=== PATIENT | female | born 1940 | race African-American/Black ===

== ENCOUNTER 2017-06-07 08:13 | Inpatient (IN) | payer OTHER ==
[~2017-06-07] VITALS: Ht 157.5 cm; Wt 71.8 kg
--- NOTE | ~2017-06-07 | IDS ---
Interim Discharge Summary [address] [place]. [address] NAME: MEGAN LORENZO : 44 STATUS : ADM IN PAT#: [id number] AGE: 77 ADM/REG DATE : 06/07/17 MR#: [id number] REPORT SERV DATE: 06/14/17 DICTATED BY: JOEY BOWER DATE: 06/13/17 REPORT STATUS : Draft TRANSCRIBED BY: MODL DATE: 06/13/17 ADMISSION DATE: 06/07/2017 DISCHARGE DATE: Interim summary covers the period of 06/07/2017 through 06/13/2017. CURRENT DIAGNOSES: 1. Acute encephalopathy, probably hypertensive, improved. 2. History of dementia with behavior disorder requiring Seroquel. 3. Previous stroke. 4. Late effects of stroke. 5. Hypertension, uncontrolled on admission, improved control. 6. Acute kidney injury, present on admission, resolved. 7. Diabetes. 8. Coronary disease per cardiac catheterization without history of stenting. 9. Fall. 10.Hyperchloremic metabolic acidosis, resolved. 11.Elevated globulins with serum protein electrophoresis and immunofixation pending. OPERATIONS AND PROCEDURES: None. PRESENT ILLNESS: This is a 77-year-old female who was triaged in the emergency room on 06/07/2017 at 0817 hours with a stated complaint of low fall and low blood glucose. Admission vital signs, blood pressure 235/104, temperature 97.9, pulse 89, and respirations 20. After evaluation and treatment in the emergency room, she was referred to the Hospitalist Service for admission. She was seen by Dr. Priscilla Anna and admitted as described on admission history and physical examination. Additional history was that she had been found on the floor of her home. She was confused. Additional history included a left brain stroke in 03/2017 at [place] with right leg weakness and a speech deficit. She was sent to [facility] for rehab. She was admitted here in 04/2017 with uncontrolled hypertension. ADDITIONAL HISTORY: Per Dr. Anna. PHYSICAL EXAMINATION: Per Dr. Anna. ADMISSION LABORATORY: Per Dr. Anna. Interim Discharge Summary [address] [place]. [address] NAME: MEGAN LORENZO : 44 STATUS : ADM IN PAT#: [id number] AGE: 77 ADM/REG DATE : 06/07/17 MR#: [id number] REPORT SERV DATE: 06/14/17 DICTATED BY: JOEY BOWER DATE: 06/13/17 REPORT STATUS : Draft TRANSCRIBED BY: ALLI DATE: 06/13/17 HOSPITAL COURSE: She was admitted by Dr. Anna with: 1. Hypertensive urgency. 2. Acute kidney injury. 3. Status post fall. 4. Right knee pain. 5. Right middle finger fracture. 6. Diabetes. 7. Right cerebrovascular accident. 8. History of coronary disease. 9. Dementia, noting Namenda home medication. 10.Acute kidney injury. 11.Elevated magnesium level. 12.Constipation. 13.Hip pain. On admission, additional antihypertensive therapy was ordered. She was given IV fluids. Orthopedic consultation was obtained. Her hospitalist care was by Dr. Posey on 06/08/2017, 06/09/2017, and 06/10/2017. Her hospitalist care on 06/11/2017, 06/12/2017, and 06/13/2017 was by the undersigned. During the course of her hospitalization, her blood pressure had normalized on a regimen of carvedilol, isosorbide, nifedipine, and hydralazine. Her mental status has improved such that she knows she is at [facility] and is cooperative and able to transfer with contact guard assist from bed to chair. She was seen by Dr. Helder Pack regarding a possible finger fracture but none was evident. Additional imaging to evaluate for fractures included a right knee which showed degenerative changes but no acute fractures. AP pelvis and left hip showed no acute injury or severe degenerative arthropathy. A CT of brain did not demonstrate any new acute abnormality but did demonstrate old left parietal infarct with encephalomalacia as well as a minimal old left caudate lacunar infarct and chronic microvascular white matter ischemic changes. Her creatinine was 1.44 on admission and is 1.09 today. She has not had any blood sugar extreme since admission with blood sugar readings ranging from 96 to 243 on Levemir 15 units daily plus a correction scale. Prior to my seeing her, she was placed on some bedtime Seroquel. There have been no behavioral issues in the past 72 hours. She was seen by Physical and Occupational Therapy. [facility] facility was recommended. We are waiting on insurance approval. Hospitalist care to be assumed by [address] [place] [address] team on 06/14/2017. Interim Discharge Summary [address] [place]. [address] NAME: MEGAN LORENZO : 44 STATUS : ADM IN PAT#: [id number] AGE: 77 ADM/REG DATE : 06/07/17 MR#: [id number] REPORT SERV DATE: 06/14/17 DICTATED BY: JOEY BOWER DATE: 06/13/17 REPORT STATUS : Draft TRANSCRIBED BY: MODSkinny DATE: 06/13/17 DD/BRIENL Joey Bower M.D. / [id number] CC: Joey Bower M.D.
--- NOTE | ~2017-06-07 | DS ---
Discharge Summary [address] [place]. [address] NAME: MEGAN LORENZO : 44 STATUS : DIS IN PAT#: [id number] AGE: 77 ADM/REG DATE : 06/07/17 MR#: [id number] REPORT SERV DATE: 06/17/17 DICTATED BY: REGINALD PAREDES DATE: 06/17/17 REPORT STATUS : Draft TRANSCRIBED BY: MODL DATE: 06/17/17 ADMISSION DATE: 06/07/2017 DISCHARGE DATE: 06/17/2017 DISCHARGE DIAGNOSES: Include: 1. Acute encephalopathy, multifactorial, likely hypertensive. 2. Acute kidney injury, resolved. 3. Hypertension. 4. Multiple falls prior to admission. 5. History of dementia, cerebrovascular accident with late effects, particularly left- sided weakness and some expressive aphasia. 6. Diabetes type 2, most recent hemoglobin A1c 7.8. 7. History of coronary artery disease. 8. Constipation. 9. Hypokalemic metabolic acidosis that is resolved. 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 DISCHARGE MEDICATIONS: Are as follows, aspirin 81 mg daily, Coreg 25 mg twice a day, Pepcid 20 mg daily, ferrous sulfate 300 mg daily, level 2 sliding scale NovoLog insulin a.c. and h.s., Imdur ER 60 mg twice a day, Namenda 5 mg twice a day, Procardia 90 mg daily, Protonix 40 mg daily, Seroquel 25 mg at bedtime, Zoloft 100 mg daily, Zocor 40 mg at bedtime, hydralazine 100 mg twice a day, Levemir insulin 15 units subcutaneously daily, artificial tears p.r.n. ophthalmically, Voltaren gel applied four times a day p.r.n. for leg pain, hypoglycemia protocol, [place] 5/325 one tablet every four hours p.r.n. for pain, milk of magnesia p.r.n., MiraLAX one packet twice a day p.r.n., clonidine 0.2 mg every eight hours p.r.n. for hypertension, albuterol inhalers p.r.n. for shortness of breath, Aldactone 25 mg daily, and K-Dur 20 mEq daily. HISTORY OF PRESENT ILLNESS: A 77-year-old female who presented after being found on the floor at home. The patient was brought to the emergency room. Please see initial H and P of Dr. Priscilla Anna, as the patient is admitted to the Hospitalist Service for further evaluation and treatment. Also, see the interim discharge summary of Dr. Mejia Musa, as this discharge summary will cover the dates of 06/14/2017 to 06/17/2017. CONSULTANTS DURING THIS ADMISSION: Include Helder Pack, Orthopedic. CONTINUATION IN THE HOSPITAL COURSE: On 06/14/2017, the patient is resting in bed comfortably. No new complaints. She was sleeping well on her dose of Seroquel. Was beginning to eat better. Blood sugars were well controlled. [facility] was in the process of evaluating her for approval and placement. She continued to do well. We were simply awaiting on [facility] approval and bed availability. I did decrease her Seroquel to 25 mg nightly, and she was able to be transferred to [facility] on 06/17/2017 when bed became available. Most recent lab work indicated sodium 143, potassium 3.8, BUN 19, creatinine 0.82. White Discharge Summary [address] [place]. [address] NAME: MEGAN LORENZO : 44 STATUS : DIS IN [facility]#: [id number] AGE: 77 ADM/REG DATE : 06/07/17 MR#: [id number] REPORT SERV DATE: 06/17/17 DICTATED BY: REGINALD PAREDES DATE: 06/17/17 REPORT STATUS : Draft TRANSCRIBED BY: MODSkinny DATE: 06/17/17 blood cells 6.1, hemoglobin 10.3, hematocrit 31.8. I have updated the patient and the patient's sister. They are in agreement with this plan going forward. Please note greater than 30 minutes was spent on this discharge for medical review, medication teaching, followup planning, and further disposition. BECKY/ALLI Elijah June NP Reginald Paredes MD / [id number] CC: Reginald Paredes MD
--- NOTE | ~2017-06-07 | HP ---
History And Physical [id number] [facility] [place]. [address] NAME: MEGAN LORENZO : 44 STATUS : ADM Fabian PAT#: [id number] AGE: 77 ADM/REG DATE : 06/07/17 MR#: [id number] REPORT SERV DATE: 06/07/17 DICTATED BY: YUE ALVARENGA DATE: 06/07/17 REPORT STATUS : Draft TRANSCRIBED BY: MODSkinny DATE: 06/07/17 DATE OF ADMISSION: 06/07/2017 HISTORY OF PRESENT ILLNESS: This is a 77-year-old female who was found at home after she fell on the floor. According to the nurse practitioner in the ER, Simon Iyer, the patient brought by her sister because the patient lives by herself. Her sister takes care of her and she found her on the floor, and also patient was recently in rehabilitation and then she came home, and according to Simon Iyer, it looks like the patient was unable to take her medications. There was also confusion and she fell at home. She is complaining of right knee pain and she felt dizzy according to Simon Iyer. The patient also was disoriented, she did not know who is the president. On the presentation, her blood pressure was 235/104. After she given she was given labetalol two times in the emergency room, her blood pressure was re-checked and it was 206/91 one time and the other time it was re-checked, it was 236/98. When I saw the patient, her blood pressure was 200/90. She was placed on a Catapres patch as well as she was given labetalol IV in the emergency room and also 250 mL fluid bolus was given to the patient before I saw this patient. When I saw the patient, patient's sister was not at the bedside, she just left. The patient herself cannot provide any history, but she only say that she fell. She does not know where she is, but she is not complaining of any pain. No chest pain. No shortness of breath. She is only complaining of pain in her right knee and right middle finger, otherwise she looks comfortable. PAST MEDICAL HISTORY: Collected from records. The patient had hypertensive urgency during previous admission in 04/08/2017 when she was admitted by Dr. Billings and discharged on 04/[address] Hall with diagnosis of uncontrolled hypertension, history of old cerebrovascular accident before previous admission, and she had a right hemiparesis at that time with aphasia, history of diabetes, history of coronary artery disease. She is on Namenda, so it looks like she has also dementia. History of coronary artery disease with a history of stent placement by Dr. Perez. History of left parietal stroke in 03/2017 at [facility] with right leg weakness and speech deficit, hypertension, history of asthma. PAST SURGICAL HISTORY: Includes right toe incision and drainage. ALLERGIES: SHE IS ALLERGIC TO PENICILLIN. ALSO, SHE IS ALLERGIC TO LISINOPRIL AND KIAN INHIBITORS. FAMILY HISTORY: Significant for multiple family members with heart disease and stroke. SOCIAL HISTORY: She used to live with her sister. She does not have biological children. No tobacco abuse. No alcohol use. HOME MEDICATIONS: Include albuterol, Artificial Tears, aspirin 81 mg a day, Coreg 6.25 p.o. b.i.d., clonidine 0.2 mg p.o. every eight hours, diclofenac, ferrous sulfate 325 a day, hydralazine 50 p.o. q.8 hours, NovoLog sliding scale insulin, Levemir 18 units at bedtime, Namenda 5 mg twice a day, milk of magnesia one dose daily p.r.n., Procardia 90 mg a day, Protonix 40 mg p.o. b.i.d. She used to take potassium chloride, but now it is stopped. Ranitidine 150 p.o. b.i.d., Zoloft 100 mg daily, simvastatin 40 mg daily, spironolactone 20 History And Physical [address] [address] NAME: MEGAN LORENZO : 44 STATUS : ADM Fabian PAT#: [id number] AGE: 77 ADM/REG DATE : 06/07/17 MR#: [id number] REPORT SERV DATE: 06/07/17 DICTATED BY: YUE ALVARENGA DATE: 06/07/17 REPORT STATUS : Draft TRANSCRIBED BY: MODSkinny DATE: 06/07/17 p.o. q.8 hours p.r.n., and Restoril 15 mg at bedtime. REVIEW OF SYSTEMS: I am unable to do review of systems on this patient since she is not able to give correct answers, but as I dictated above. She did not complain of chest pain. No shortness of breath. She is not complaining of any headache as well. PHYSICAL EXAMINATION: GENERAL: A well-nourished, well-developed female, not in acute distress. Resting quietly. VITAL SIGNS: Blood pressure 200/95, temperature 97.9, heart rate 89, respiratory rate 20, oxygen saturation 96% on room air. HEENT: Head atraumatic, normocephalic. Conjunctivae clear. Pupils are equal and reactive to light and accommodation. Extraocular muscles are intact. NECK: Supple. Trachea is midline. No supraclavicular or cervical lymphadenopathy. LUNGS: Diminished breath sounds bilaterally. Decreased respiratory effort. CARDIOVASCULAR: Regular rate and rhythm. Point of maximal impulse not displaced. ABDOMEN: Soft. There is no significant tenderness on abdominal palpation. She just has diminished bowel sounds and it is unclear when she had a last bowel movement. Benign abdominal examination, no organomegaly. EXTREMITIES: No clubbing, cyanosis, or edema. MUSCULOSKELETAL: She has difficulty to bend her right knee, but the right knee does not look swollen and also the left knee looks okay and able to bend it. The right middle finger is deformed and she has mild pain when she tries to bend it. NEUROLOGICAL: Muscle strength is 5/5 bilaterally on upper extremities. She has difficulty to lift her right lower extremity because of the pain in the knee. Left lower extremity muscle strength 5/5. She has some dysarthria, which looks chronic according to Simon Iyer. SKIN: Normal color, slightly decreased turgor. LABORATORY RESULTS: Sodium 139, potassium 4.2, chloride 100, carbon dioxide 29, BUN 29, creatinine 1.44, blood sugar 125, magnesium 2.7. Troponin less than 0.02. CPK 86. Her creatinine during previous admission on 04/08 was 0.97. White count 10.2, hemoglobin 14, hematocrit 42, platelet count 294. PT 14.2, INR 1.1. UA did not show any evidence of urinary tract infection. CT of the head, no acute intracranial pathology, atrophy, old left parietal infarction with encephalomalacia, minimal old left caudate lacunar infarct, chronic microvascular white matter, ischemic changes, calcific atherosclerosis. Her EKG showed normal sinus rhythm with a rate of 70, prolonged QT interval. Also her magnesium level was 2.7. ASSESSMENT AND PLAN: This is a 77-year-old female with a past medical history of uncontrollable hypertension with multiple admissions for uncontrolled hypertension, history of a parietal stroke in March, history or dementia, presented with, 1. Hypertensive urgency. 2. Acute kidney injury likely secondary to acute dehydration. 3. Status post fall. 4. Right knee pain. 5. Right middle finger fracture. History And Physical [address] [address] NAME: MEGAN LORENZO : 44 STATUS : ADM Fabina PAT#: [id number] AGE: 77 ADM/REG DATE : 06/07/17 MR#: [id number] REPORT SERV DATE: 06/07/17 DICTATED BY: YEU ALVARENGA DATE: 06/07/17 REPORT STATUS : Draft TRANSCRIBED BY: ALLI DATE: 06/07/17 6. Diabetes mellitus. 7. Recent cerebrovascular accident. 8. History of coronary artery disease. 9. Dementia, since is on Namenda. We will admit the patient in observation status to intermediate care unit since her blood pressure was still elevated, and we will start the patient on a Cardene drip. At the same time, we will continue her antihypertensive medications. We will monitor her blood pressure. Will bring blood pressure slowly with initial goal systolic blood pressure 160, diastolic 85, and then it should be brought down to other goal. 10.Acute kidney injury. The patient will be started on IV fluids. I think it is related to dehydration. 11.Elevated magnesium level likely related to laxatives like magnesium citrate, which is on patient's records. We try to avoid it and give her MiraLAX as needed. 12.Question of constipation. We will do x-ray of KUB on this patient. 13.Right knee pain. I will order x-ray on the right knee. 14.Question of the hip pain. Simon Iyer, emergency room provider. He did an x-ray on hips and according to him, the x-ray of the hips look okay. We will wait for official report. It looks like she had a right knee x-ray also, but the official report is not read. An abdominal x-ray also looks like it is done. We will wait for the report on these x-rays. 15.We will try to avoid giving the patient magnesium citrate. 16.Regarding diabetes, we will put the patient on a NovoLog sliding scale and a low-dose Levemir. 17.Nurses to do dysphagia screen on this patient, and if it goes good, she can be started on a soft mechanical diet with aspiration precautions. My partner will see this patient while she will be in the IMCU. MG/MODL Yue Alvarenga M.D. / [id number] CC: Roro Posey M.D.
--- NOTE | ~2017-06-07 | CN ---
Consultation Report [facility] [address] [place]. [address] NAME: MEGAN LORENZO : 44 STATUS : ADM IN [facility]#: [id number] AGE: 77 ADM/REG DATE : 06/07/17 MR#: [id number] REPORT SERV DATE: 06/09/17 DICTATED BY: PATIENEC PACK DATE: 06/08/17 REPORT STATUS : Draft TRANSCRIBED BY: ALLI DATE: 06/08/17 ORTHOPEDIC CONSULTATION DATE OF CONSULTATION: 06/08/2017 REASON: Questionable right middle finger fracture. HISTORY OF PRESENT ILLNESS: Ms. Lorenzo is a 77-year-old female who is admitted to the hospitalist service. We are asked to see regarding right middle finger. She is status post fall, reports some pain in the middle finger prior to the fall but it was worse after reported some deformity that has been present for a while. Denies any numbness or tingling. She was placed in a splint in the ER and evaluated in the IMCU. PAST MEDICAL HISTORY: Significant for hypertension, metabolic encephalopathy, dementia, and history of recent CVA. SURGERIES: Please see the list. MEDICATIONS: Please see the list. ALLERGIES: KIAN INHIBITOR, LISINOPRIL, AND PENICILLIN. REVIEW OF SYSTEMS: Negative except as above. PHYSICAL EXAMINATION: GENERAL: The patient is resting comfortably in hospital bed, in no apparent distress. EXTREMITIES: Examination of the left upper extremity, no erythema, ecchymosis, swelling, or deformity. No external signs of trauma. No bony tenderness. Neurovascularly intact distally. Good range of motion. Examination of the right wrist was nontender. Good range of motion. No bony tenderness. No open wounds or abrasions. Examination of the right hand, splint was removed the middle finger that was flexed in angular deformity about the PIP joint. It is mildly tender. She had intact flexor and extensor function. There was limited extension. There was no tenderness about the middle, distal, or proximal phalanx. She was tender about the PIP joint. DIAGNOSTIC DATA: X-ray series of the right hand show destructive middle finger PIP osteoarthritis with eccentric wear and angular deformity. No acute fractures. ASSESSMENT AND PLAN: 77-year-old with right middle finger severe degenerative joint disease, osteoarthritis with exacerbation after a fall. Recommend symptomatic treatment, active range of motion, activity modification. Splint only as needed as I believe it will lead to further stiffness. She can see us as an outpatient in 7 to 10 days. May consider other modalities should the pain persist. We will be available as needed. Consultation Report [place] [id number] [place]. [address] NAME: MEGAN LORENZO : 44 STATUS : ADM IN PAT#: [id number] AGE: 77 ADM/REG DATE : 06/07/17 MR#: [id number] REPORT SERV DATE: 06/09/17 DICTATED BY: PATIENCE PACK DATE: 06/08/17 REPORT STATUS : Draft TRANSCRIBED BY: MODSkinny DATE: 06/08/17 LONG/ALLI Patience Pack M.D. / [id number] CC: Roro Posey M.D.
[~2017-06-07 08:13] MED LIST: ACCUNEB INH; AFEDITAB60 MG PO; ASAB PO; B12250T PO; BLINK EYE OP; BREO ELLIPTA INH; CALTRA600D PO; CAT1 PO; CAT2 PO; COZAAR100 MG PO; FERROUS SULF325 M1 PO; FLUOROMETHOLONE 0.1% OP; GLUCOPHAGE1000 MG PO; HUMULIN SC; ISORDTITRA PO; KLOR-CON M2020 MEQ PO; L40 PO; LEVEMIR SC; LYRICA75 PO; MIRALAX POWDER1 PKT PO; MONOKET20 PO; NAMENDA5 PO; NITROQUICK0.4 MG SL; NOVOLIN; NOVOLOG SC; PRILO PO; PROTONIX PO; PROVHFA INH; SINGULAIR1 PO; SPIRO25 PO; SYMBICORT 160/41 INH INH; TRIAMCINOLONE; TUMSROLL PO; V180SR PO; VALTURN1 PO; VENTOLIN HFA INH; VERELAN240 MG PO; VITAMIN D400 UNI1 PO; ZOCOR10 PO; ZOCOR40 PO; ZOL50 PO; [UNRECOGNIZED DRUG - OTHER] PO
[2017-06-07 10:38] LABS: ASCORBIC ACID (UR NOT ORDER) NEG (NEG); BILIRUBIN, URINE NEGATIVE (NEG); ER URINALYSIS TAT 0 Hrs 08 Mins; KETONE, URINE NEGATIVE (NEG); LEUKOCYTE ESTERASE(NOT OR NEG (NEG); NITRITE (URINE) NEG (NEG); WBC (NOT ORDERED) (RFLEX) < 1 (0-5)
[2017-06-07] MEDS ORDERED: NAMENDA5 PO (10:44)
[2017-06-07] MEDS ORDERED: LEVEMFLXPN SC (10:44)
[2017-06-07] MEDS ORDERED: NXL9 PO (10:45)
[2017-06-07] MEDS ORDERED: VENTOLIN HFA INH (10:45)
[2017-06-07] MEDS ORDERED: LASIX (10:46)
[2017-06-07] MEDS ORDERED: PROTONIX PO (10:46)
[2017-06-07] MEDS ORDERED: ZOCOR40 PO (10:47)
[2017-06-07] MEDS ORDERED: ZOL100 PO (10:47)
[2017-06-07] MEDS ORDERED: REFRESH OPH SO0.3 ML OPH (10:47)
[2017-06-07] MEDS ORDERED: SPIRO25 PO (10:48)
[2017-06-07] MEDS ORDERED: CAT2 PO (10:49)
[2017-06-07] MEDS ORDERED: HALF81 PO (10:49)
[2017-06-07] MEDS ORDERED: COREG6 PO (10:49)
[2017-06-07] MEDS ORDERED: NOVOLOG SC (10:49)
[2017-06-07] MEDS ORDERED: FERROUS SULF325 M1 PO (10:50)
[2017-06-07] MEDS ORDERED: VOLTAREN1 % TOP (10:50)
[2017-06-07] MEDS ORDERED: MOMUD PO (10:50)
[2017-06-07] MEDS ORDERED: APRES50 PO (10:52)
[2017-06-07 10:55] LABS: INTERNATIONAL NORMAL RATI 1.1 UNITS (-); PARTIAL THROMBO TIME 27.5 SEC (22.5-37.2); PROTIME (NOT ORD) 14.2 SEC (12.0-14.5)
[2017-06-07 11:01] LABS: CALCIUM, SERUM 9.6 MG/DL (8.5-10.4); CHEST PAIN PROFILE TAT 0 Hrs 19 Mins; CO2 (CARBON DIOXIDE) 29 MMOL/L (24-34); CREATININE 1.44 MG/DL (0.55-1.02); GFR AFRICAN AMERICAN 41 ML/MIN (>=60); GFR NON AFRICAN AMERICAN 35 ML/MIN (>=60); GLUCOSE, SERUM 125 MG/DL (60-99); POTASSIUM, SERUM 4.2 MMOL/L (3.5-5.3); SODIUM, SERUM 139 MMOL/L (135-148); TROPONIN I <0.02 NG/ML (<0.05)
[2017-06-07 11:02] LABS: BUN (BLOOD UREA NITROGEN) 29 MG/DL (6-23); CHLORIDE, SERUM 100 MMOL/L (96-112)
[2017-06-07] MEDS ORDERED: KDUR20 PO (11:25)
[2017-06-07] MEDS ORDERED: ZANTAC 150 PO (11:27)
[2017-06-07] MEDS ORDERED: REST15 PO (11:27)
[2017-06-07 11:55] LABS: BASOPHILS 0 %; EOSINOPHILS 0 %; IMMATURE GRANULOCYTES 0.1 %; IMMATURE GRANULOCYTES ABSOLUTE 0.01 10/3/uL (0.0-0.11); LYMPHOCYTES 9.6 %; LYMPHOCYTES ABSOLUTE 0.98 10/3/uL (0.67-4.30); MEAN CORPUS HGB CONC 33.3 g/dL (32.0-36.0); MEAN CORPUSCULAR HEMOGLOB 28.5 pg (26.0-34.0); MEAN CORPUSCULAR VOLUME 85.5 fL (80-100); MEAN PLATELET VOLUME 9.6 fL (9.2-13.0); MONOCYTES 4.8 %; MONOCYTES ABSOLUTE 0.49 10/3/uL (0.21-1.20); NEUTROPHILS 85.5 %; NEUTROPHILS ABSOLUTE 8.71 10/3/uL (2.02-8.40); PLATELET COUNT 294 10/3/uL (150-400); RED CELL COUNT 4.91 10/6/uL (4.0-5.6); WHITE BLOOD CELLS 10.2 10/3/uL (4.5-10.5)
[2017-06-07 11:56] LABS: MANUAL DIFF NO %
[2017-06-07 12:29] LABS: ER CBC TAT 1 Hrs 13 Mins
[2017-06-07 14:11] LABS: CPK 86 U/L (0-200)
[2017-06-07 18:34] LABS: TROPONIN I <0.02 NG/ML (<0.05)
[2017-06-08 05:26] LABS: BASOPHILS 0.1 %; BASOPHILS ABSOLUTE 0.01 10/3/uL (0.0-0.16); EOSINOPHILS 0.4 %; EOSINOPHILS ABSOLUTE 0.03 10/3/uL (0.0-0.53); HEMATOCRIT 37.8 % (36.0-48.0); HEMOGLOBIN 12.2 g/dL (12.0-16.0); IMMATURE GRANULOCYTES 0.3 %; IMMATURE GRANULOCYTES ABSOLUTE 0.02 10/3/uL (0.0-0.11); LYMPHOCYTES 20.4 %; LYMPHOCYTES ABSOLUTE 1.37 10/3/uL (0.67-4.30); MEAN CORPUS HGB CONC 32.3 g/dL (32.0-36.0); MEAN CORPUSCULAR VOLUME 86.9 fL (80-100); MEAN PLATELET VOLUME 9.6 fL (9.2-13.0); MONOCYTES 9.5 %; MONOCYTES ABSOLUTE 0.64 10/3/uL (0.21-1.20); NEUTROPHILS 69.3 %; NEUTROPHILS ABSOLUTE 4.66 10/3/uL (2.02-8.40); PLATELET COUNT 283 10/3/uL (150-400); RBC DISTRIBUTION WIDTH 15.3 % (12.0-16.0); RED CELL COUNT 4.35 10/6/uL (4.0-5.6); WHITE BLOOD CELLS 6.7 10/3/uL (4.5-10.5)
[2017-06-08 05:27] LABS: MANUAL DIFF NO %
[2017-06-08 05:41] LABS: BUN (BLOOD UREA NITROGEN) 25 MG/DL (6-23); CHLORIDE, SERUM 106 MMOL/L (96-112); CO2 (CARBON DIOXIDE) 25 MMOL/L (24-34); GFR AFRICAN AMERICAN 46 ML/MIN (>=60); GFR NON AFRICAN AMERICAN 40 ML/MIN (>=60); GLUCOSE, SERUM 109 MG/DL (60-99); SODIUM, SERUM 142 MMOL/L (135-148)
[2017-06-09 06:31] LABS: BUN (BLOOD UREA NITROGEN) 18 MG/DL (6-23); CHLORIDE, SERUM 110 MMOL/L (96-112); CO2 (CARBON DIOXIDE) 23 MMOL/L (24-34); GFR AFRICAN AMERICAN 57 ML/MIN (>=60); GFR NON AFRICAN AMERICAN 49 ML/MIN (>=60); POTASSIUM, SERUM 3.5 MMOL/L (3.5-5.3); SODIUM, SERUM 142 MMOL/L (135-148)
[2017-06-09 06:32] LABS: GLUCOSE, SERUM 157 MG/DL (60-99)
[2017-06-10 09:33] LABS: BASOPHILS 0.2 %; BASOPHILS ABSOLUTE 0.02 10/3/uL (0.0-0.16); EOSINOPHILS 0.7 %; EOSINOPHILS ABSOLUTE 0.07 10/3/uL (0.0-0.53); HEMATOCRIT 40.5 % (36.0-48.0); IMMATURE GRANULOCYTES 0.1 %; IMMATURE GRANULOCYTES ABSOLUTE 0.01 10/3/uL (0.0-0.11); LYMPHOCYTES 10.4 %; LYMPHOCYTES ABSOLUTE 1.09 10/3/uL (0.67-4.30); MEAN CORPUS HGB CONC 32.1 g/dL (32.0-36.0); MEAN CORPUSCULAR HEMOGLOB 28.2 pg (26.0-34.0); MEAN CORPUSCULAR VOLUME 87.9 fL (80-100); MEAN PLATELET VOLUME 9.5 fL (9.2-13.0); MONOCYTES 5.8 %; MONOCYTES ABSOLUTE 0.61 10/3/uL (0.21-1.20); NEUTROPHILS 82.8 %; NEUTROPHILS ABSOLUTE 8.67 10/3/uL (2.02-8.40); PLATELET COUNT 239 10/3/uL (150-400); RBC DISTRIBUTION WIDTH 15.6 % (12.0-16.0); RED CELL COUNT 4.61 10/6/uL (4.0-5.6)
[2017-06-10 09:35] LABS: MANUAL DIFF NO %; WHITE BLOOD CELLS 10.5 10/3/uL (4.5-10.5)
[2017-06-10 09:48] LABS: BUN (BLOOD UREA NITROGEN) 10 MG/DL (6-23); CALCIUM, SERUM 8.7 MG/DL (8.5-10.4); CHLORIDE, SERUM 112 MMOL/L (96-112); CO2 (CARBON DIOXIDE) 23 MMOL/L (24-34); GFR AFRICAN AMERICAN 72 ML/MIN (>=60); GFR NON AFRICAN AMERICAN 63 ML/MIN (>=60); GLUCOSE, SERUM 195 MG/DL (60-99); POTASSIUM, SERUM 3.3 MMOL/L (3.5-5.3); SODIUM, SERUM 144 MMOL/L (135-148)
[2017-06-11 06:30] LABS: CALCIUM, SERUM 8.2 MG/DL (8.5-10.4); CHLORIDE, SERUM 113 MMOL/L (96-112); CO2 (CARBON DIOXIDE) 21 MMOL/L (24-34); CREATININE 1.06 MG/DL (0.55-1.02); GFR AFRICAN AMERICAN 59 ML/MIN (>=60); GFR NON AFRICAN AMERICAN 51 ML/MIN (>=60); POTASSIUM, SERUM 3.9 MMOL/L (3.5-5.3); SODIUM, SERUM 144 MMOL/L (135-148)
[2017-06-11 06:34] LABS: BUN (BLOOD UREA NITROGEN) 16 MG/DL (6-23); GLUCOSE, SERUM 126 MG/DL (60-99)
[2017-06-11 15:50] LABS: T PROTEIN (ELECT)(NOT OR 6.4 G/DL (6.0-8.5)
[2017-06-12 10:33] LABS: BUN (BLOOD UREA NITROGEN) 16 MG/DL (6-23); CALCIUM, SERUM 8.3 MG/DL (8.5-10.4); CHLORIDE, SERUM 111 MMOL/L (96-112); CO2 (CARBON DIOXIDE) 24 MMOL/L (24-34); CREATININE 1.09 MG/DL (0.55-1.02); GFR AFRICAN AMERICAN 58 ML/MIN (>=60); GFR NON AFRICAN AMERICAN 50 ML/MIN (>=60); GLUCOSE, SERUM 192 MG/DL (60-99); POTASSIUM, SERUM 3.8 MMOL/L (3.5-5.3); SODIUM, SERUM 142 MMOL/L (135-148)
[2017-06-14 11:43] LABS: A/G 0.88 RATIO (0.9-2.10); ALB RELATIVE % 46.8 % (60.0-89.0); ALPHA 1 RELAT % (NOT ORD) 4.7 % (1.0-4.0); ALPHA 2 RELAT % 12.5 % (4.5-26.0); BETA GLOBULIN (SPE) 0.88 GM/DL (0.60-1.30); BETA RELATIVE % 13.8 % (9.0-22.0); GAMMA GLOBULIN (SPE) 1.42 G/DL (0.70-1.60); GAMMA RELAT % 22.2 % (6.0-22.0)
[2017-06-16 14:49] LABS: BASOPHILS 0.3 %; BASOPHILS ABSOLUTE 0.02 10/3/uL (0.0-0.16); EOSINOPHILS 0.8 %; EOSINOPHILS ABSOLUTE 0.05 10/3/uL (0.0-0.53); HEMOGLOBIN 10.8 g/dL (12.0-16.0); IMMATURE GRANULOCYTES 0.3 %; IMMATURE GRANULOCYTES ABSOLUTE 0.02 10/3/uL (0.0-0.11); LYMPHOCYTES 21.2 %; LYMPHOCYTES ABSOLUTE 1.27 10/3/uL (0.67-4.30); MEAN CORPUS HGB CONC 32.8 g/dL (32.0-36.0); MEAN CORPUSCULAR HEMOGLOB 28.5 pg (26.0-34.0); MEAN CORPUSCULAR VOLUME 86.8 fL (80-100); MEAN PLATELET VOLUME 8.9 fL (9.2-13.0); MONOCYTES 8.3 %; NEUTROPHILS 69.1 %; NEUTROPHILS ABSOLUTE 4.14 10/3/uL (2.02-8.40); PLATELET COUNT 251 10/3/uL (150-400); RBC DISTRIBUTION WIDTH 14.9 % (12.0-16.0); RED CELL COUNT 3.79 10/6/uL (4.0-5.6)
[2017-06-16 14:51] LABS: HEMATOCRIT 32.9 % (36.0-48.0); MANUAL DIFF NO %
[2017-06-16 15:10] LABS: BUN (BLOOD UREA NITROGEN) 18 MG/DL (6-23); CALCIUM, SERUM 8.8 MG/DL (8.5-10.4); CHLORIDE, SERUM 110 MMOL/L (96-112); CO2 (CARBON DIOXIDE) 26 MMOL/L (24-34); CREATININE 1.03 MG/DL (0.55-1.02); GFR AFRICAN AMERICAN 62 ML/MIN (>=60); GFR NON AFRICAN AMERICAN 53 ML/MIN (>=60); POTASSIUM, SERUM 3.8 MMOL/L (3.5-5.3); SODIUM, SERUM 143 MMOL/L (135-148)
[2017-06-16 15:12] LABS: GLUCOSE, SERUM 144 MG/DL (60-99)
[2017-06-17 06:46] LABS: BUN (BLOOD UREA NITROGEN) 19 MG/DL (6-23); CALCIUM, SERUM 8.7 MG/DL (8.5-10.4); CHLORIDE, SERUM 109 MMOL/L (96-112); CO2 (CARBON DIOXIDE) 27 MMOL/L (24-34); CREATININE 0.82 MG/DL (0.55-1.02); GFR AFRICAN AMERICAN 81 ML/MIN (>=60); GFR NON AFRICAN AMERICAN 70 ML/MIN (>=60); GLUCOSE, SERUM 118 MG/DL (60-99); POTASSIUM, SERUM 3.8 MMOL/L (3.5-5.3); SODIUM, SERUM 143 MMOL/L (135-148)
[2017-06-17 06:54] LABS: BASOPHILS 0.2 %; BASOPHILS ABSOLUTE 0.01 10/3/uL (0.0-0.16); EOSINOPHILS ABSOLUTE 0.06 10/3/uL (0.0-0.53); HEMATOCRIT 31.8 % (36.0-48.0); HEMOGLOBIN 10.3 g/dL (12.0-16.0); IMMATURE GRANULOCYTES 0.5 %; IMMATURE GRANULOCYTES ABSOLUTE 0.03 10/3/uL (0.0-0.11); LYMPHOCYTES 21.6 %; LYMPHOCYTES ABSOLUTE 1.31 10/3/uL (0.67-4.30); MEAN CORPUS HGB CONC 32.4 g/dL (32.0-36.0); MEAN CORPUSCULAR HEMOGLOB 28.4 pg (26.0-34.0); MEAN CORPUSCULAR VOLUME 87.6 fL (80-100); MEAN PLATELET VOLUME 9.3 fL (9.2-13.0); MONOCYTES 7.1 %; MONOCYTES ABSOLUTE 0.43 10/3/uL (0.21-1.20); NEUTROPHILS 69.6 %; NEUTROPHILS ABSOLUTE 4.22 10/3/uL (2.02-8.40); PLATELET COUNT 266 10/3/uL (150-400); RBC DISTRIBUTION WIDTH 14.8 % (12.0-16.0); RED CELL COUNT 3.63 10/6/uL (4.0-5.6); WHITE BLOOD CELLS 6.1 10/3/uL (4.5-10.5)
[2017-06-17 06:58] LABS: MANUAL DIFF NO %
== END 2017-06-17 14:09 | DRG 78 ==
LOC: ENRESERVDT → ENRESERVTM → ENRESERV → ER 08:13 → 6NO 14:50 → IMCU 14:50 → 6NO 06-09 00:02
PROVIDERS: Hospitalist; Internal Medicine; Nurse Practitioner Family
DX: I67.4 Hypertensive encephalopathy (principal); N17.9 Acute kidney failure, unspecified; E87.2 Acidosis; F03.91 Unspecified dementia, unspecified severity, with behavioral disturbance; I69.354 Hemiplegia and hemiparesis following cerebral infarction affecting left non-dominant side; E11.22 Type 2 diabetes mellitus with diabetic chronic kidney disease; I16.0 Hypertensive urgency; I69.920 Aphasia following unspecified cerebrovascular disease; E86.0 Dehydration; W19.XXXA Unspecified fall, initial encounter; S62.602A Fracture of unspecified phalanx of right middle finger, initial encounter for closed fracture; E87.6 Hypokalemia; M19.041 Primary osteoarthritis, right hand; E83.41 Hypermagnesemia; M25.561 Pain in right knee; N18.3 Chronic kidney disease, stage 3 (moderate); K59.00 Constipation, unspecified; I25.10 Atherosclerotic heart disease of native coronary artery without angina pectoris; E11.649 Type 2 diabetes mellitus with hypoglycemia without coma; Z91.81 History of falling; Z79.82 Long term (current) use of aspirin; Z88.0 Allergy status to penicillin; Z88.8 Allergy status to other drugs, medicaments and biological substances; Z79.4 Long term (current) use of insulin; Z95.5 Presence of coronary angioplasty implant and graft
CPT/HCPCS: 70450; 73140-RT; 73502-LT; 73560-RT; 74022; 80048; 81001; 82550; 82962; 83735; 84155; 84165; 84443; 84484; 85025; 85610; 85730; 86334; 93005; 96374; 96376; 97110-GO; 97110-GP; 97116-GP; 97162-GP; 97166-GO; 97535-GO; 99285; A9270-GY; J0360; J3475